=== PATIENT | male | born 1995 | race Caucasian/White ===

== ENCOUNTER 2020-05-07 06:19 | Outpatient (REF) | payer OTHER, SELFPAY ==
[2020-05-07 07:01] LABS: COVID-19 Test Negative (Negative)
== END 2020-05-07 06:20 | disposition home or self-care (01) ==
LOC: HO.LAB 06:19
PROVIDERS: Visit Provider Internal Medicine
DX: Z20.828 Contact with and (suspected) exposure to other viral communicable diseases (principal)
CPT/HCPCS: 87635

== ENCOUNTER 2020-05-11 11:33 | Outpatient (REF) | payer OTHER, SELFPAY ==
[2020-05-11 12:00] LABS: COVID-19 Test Negative (Negative)
== END 2020-05-11 11:34 | disposition home or self-care (01) ==
LOC: HO.LAB 11:33
PROVIDERS: Visit Provider Internal Medicine
DX: Z20.828 Contact with and (suspected) exposure to other viral communicable diseases (principal)
CPT/HCPCS: 87635

== ENCOUNTER 2020-06-30 16:51 | Outpatient (REF) | payer OTHER, SELFPAY ==
[2020-06-30 17:23] LABS: COVID-19 Test Positive (Negative)
== END 2020-06-30 16:52 | disposition home or self-care (01) ==
LOC: HO.EMPCOV 16:51
PROVIDERS: Visit Provider Internal Medicine
DX: Z20.828 Contact with and (suspected) exposure to other viral communicable diseases (principal)
CPT/HCPCS: 87635; C9803